=== PATIENT | male | born 1970 | race African-American/Black ===

== ENCOUNTER 2024-04-17 20:12 | Inpatient (IN) | payer SELFPAY ==
[~2024-04-17] VITALS: Ht 170.2 cm; Wt 59.9 kg
[2024-04-17 22:22] LABS: BASOPHILS % 1.1 % (0.0-2.0); DIFFERENTIAL COMMENT 0; EOSINOPHILS % 0.1 % (0.0-5.0); HEMATOCRIT. 32.4 % (42.0-52.0); HEMOGLOBIN. 10.7 g/dL (14.0-18.0); LYMPHOCYTES % 18.1 % (20.0-50.0); MEAN CORPUSCULAR HEMOGLOBIN 34.6 pg (28.0-32.0); MEAN CORPUSCULAR HGB CONC 32.9 g/dL (31.0-37.0); MEAN CORPUSCULAR VOLUME 105.1 fL (80.0-94.0); MEAN PLATELET VOLUME 9.2 fl (7.4-10.4); MONOCYTES % 12.4 % (2.0-8.0); NEUTROPHILS % 68.3 % (40.0-76.0); PLATELET 177 x1000/uL (130-400); RED BLOOD CELL COUNT 3.08 mill/uL (4.7-6.1); RED CELL DISTRIBUTION WIDTH 14.5 % (11.6-14.6); WHITE BLOOD COUNT 5.5 x1000/uL (4.5-11.0)
[2024-04-17] MEDS: ASPIRIN 81MG TABLET PO ONE (22:26)
[2024-04-17 22:36] LABS: CHLORIDE 98 mEq/L (98-107); POTASSIUM 3.6 mEq/L (3.5-5.1); SODIUM 134 mEq/L (136-145)
[2024-04-17 22:37] LABS: CALCIUM 9.1 mg/dL (8.7-10.4); CARBON DIOXIDE 24 mEq/L (21-32)
[2024-04-17 22:42] LABS: CREATININE 1.2 mg/dL (0.6-1.3); GLUCOSE 125 mg/dL (70-105); UREA NITROGEN BLOOD 13 mg/dL (9-23)
[2024-04-17 22:43] LABS: TROPONIN I HIGH SENSITIVITY 14 ng/L (3.0-53)
[2024-04-18 01:19] LABS: TROPONIN I HIGH SENSITIVITY 13 ng/L (3.0-53)
[2024-04-18] MEDS ORDERED: ACETAMINOPHEN 325MG TABLET PO PRN ×2 (02:00)
[2024-04-18] MEDS ORDERED: DOCUSATE SODIUM 100MG CAPSULE PO PRN (02:00)
[2024-04-18] MEDS ORDERED: CLONIDINE 0.1MG TABLET PO PRN (02:00)
[2024-04-18] MEDS ORDERED: GUAIFENESIN 200MG/10ML SUGAR FREE UDC PO PRN (02:00)
[2024-04-18] MEDS ORDERED: IPRATROPIUM/ALBUTEROL 0.5-3(2.5)MG/3ML NEB HHN PRN (02:00)
[2024-04-18] MEDS ORDERED: ONDANSETRON HCL 4MG/2ML INJ IV PRN (02:00)
[2024-04-18] MEDS: SODIUM CHLORIDE 0.9% 1,000 ML IV SCH (02:14)
[2024-04-18 03:02] LABS: IRON 41 ug/dL (65-175)
[2024-04-18 03:03] LABS: TRIGLYCERIDE 94 mg/dL (0-150)
[2024-04-18 03:04] LABS: LDL CHOLESTEROL 41 mg/dL (5-100)
[2024-04-18 03:05] LABS: CHOLESTEROL 140 mg/dL (<200); HDL CHOLESTEROL 67 mg/dL (>55); TOTAL IRON BINDING CAPACITY 208 ug/dl (250-425)
[2024-04-18 03:07] LABS: T4 FREE 1.27 ng/dL (0.89-1.76); THYROID STIMULATING HORMONE 2.14 uIU/mL (0.55-4.78)
[2024-04-18 03:21] LABS: ETHANOL BLOOD < 10 mg/dL (<10)
[2024-04-18 04:14] LABS: FERRITIN 280 ng/mL (22-322); FOLIC ACID (FOLATE) SERUM 8.41 ng/mL (>5.38)
[2024-04-18 05:23] LABS: VITAMIN B12 SERUM 876 pg/mL (211-911)
[2024-04-18 06:16] LABS: HEMATOCRIT 29.9 % (42.0-52.0); HEMOGLOBIN 9.9 g/dL (14.0-18.0); MEAN CORPUSCULAR HEMOGLOBIN 34.7 pg (28.0-32.0); MEAN CORPUSCULAR VOLUME 105.2 fL (80.0-94.0); PLATELET 152 x1000/uL (130-400); RED BLOOD CELL COUNT 2.84 mill/uL (4.7-6.1); RED CELL DISTRIBUTION WIDTH 14.8 % (11.6-14.6); WHITE BLOOD COUNT 5.1 x1000/uL (4.5-11.0)
[2024-04-18 06:26] LABS: CHLORIDE 100 mEq/L (98-107); POTASSIUM 3.3 mEq/L (3.5-5.1); SODIUM 136 mEq/L (136-145)
[2024-04-18 06:27] LABS: CARBON DIOXIDE 24 mEq/L (21-32)
[2024-04-18 06:28] LABS: CALCIUM 8.5 mg/dL (8.7-10.4)
[2024-04-18 06:33] LABS: CREATINE KINASE MB FRACTION < 0.5 ng/mL (0.5-3.6); GLUCOSE 110 mg/dL (70-105); TROPONIN I HIGH SENSITIVITY 14 ng/L (3.0-53); UREA NITROGEN BLOOD 13 mg/dL (9-23)
[2024-04-18 06:34] LABS: ALANINE AMINOTRANSFERASE 18 IU/L (10-49); ASPARTATE AMINOTRANSFERASE 28 IU/L (<34)
[2024-04-18 06:35] LABS: ALBUMIN 3.6 g/dL (3.2-4.8); BILIRUBIN TOTAL 0.4 mg/dL (0.1-1.0); PROTEIN TOTAL 6.6 g/dL (6.0-8.3)
[2024-04-18] MEDS: POTASSIUM CHLORIDE 20MEQ TABLET SR PO NR ×2 (08:34→17:29)
[2024-04-18 09:48] LABS: BG BASE EXCESS -2.1 mmol/L (-2.0-2.0); BG CARBOXYHEMOGLOBIN 0.3 % (0.5-1.5); BG DEOXYHEMOGLOBIN 1.9 % (0.0-5.0); BG HCO3 ACT 20.1 mmol/L (22.0-26.0); BG METHEMOGLOBIN 0.3 % (0.0-1.5); BG OXYGEN SATURATION 98.1 % (92.0-98.5); BG OXYHEMOGLOBIN 97.5 % (94.0-97.0); BG PCO2 26.5 mmHg (35.0-45.0); BG PH 7.497 (7.350-7.450); BG PO2 108.5 mmHg (75.0-100.0); BG SAMPLE SITE LEFT RADIAL; BG TOTAL HEMOGLOBIN 10.7 g/dL (12.0-18.0); BG VENT MODE ROOM AIR
[2024-04-18] MEDS: AMLODIPINE 5MG TABLET PO SCH (09:55)
[2024-04-18 12:00] VITALS: BP 116/85; PULSE 131; RESP 18; TEMP 97
[2024-04-18 12:24] VITALS: BP 116/85; PULSE 123; RESP 18; TEMP 97
[2024-04-18 16:00] VITALS: BP 120/83; PULSE 109; RESP 18; TEMP 97.3
[2024-04-18 19:45] LABS: HEMATOCRIT. 24.7 % (42.0-52.0); HEMOGLOBIN. 8.2 g/dL (14.0-18.0); MEAN CORPUSCULAR HEMOGLOBIN 34.9 pg (28.0-32.0); MEAN CORPUSCULAR HGB CONC 33.3 g/dL (31.0-37.0); MEAN CORPUSCULAR VOLUME 104.9 fL (80.0-94.0); MEAN PLATELET VOLUME 9.3 fl (7.4-10.4); PLATELET 144 x1000/uL (130-400); RED BLOOD CELL COUNT 2.35 mill/uL (4.7-6.1); RED CELL DISTRIBUTION WIDTH 14.8 % (11.6-14.6); WHITE BLOOD COUNT 4.8 x1000/uL (4.5-11.0)
[2024-04-18 19:46] LABS: DIFFERENTIAL COMMENT 1
[2024-04-18 19:55] LABS: CHLORIDE 103 mEq/L (98-107); POTASSIUM 3.8 mEq/L (3.5-5.1); SODIUM 135 mEq/L (136-145)
[2024-04-18 19:56] LABS: CARBON DIOXIDE 26 mEq/L (21-32)
[2024-04-18 19:57] LABS: CALCIUM 7.9 mg/dL (8.7-10.4)
[2024-04-18 20:00] VITALS: BP 116/80; PULSE 100; RESP 19; TEMP 97.8
[2024-04-18 20:00] LABS: PLATELET ESTIMATE NORMAL
[2024-04-18 20:01] LABS: GLUCOSE 129 mg/dL (70-105); UREA NITROGEN BLOOD 13 mg/dL (9-23)
[2024-04-18 20:02] LABS: CREATINE KINASE MB FRACTION < 0.5 ng/mL (0.5-3.6); TROPONIN I HIGH SENSITIVITY 15 ng/L (3.0-53)
[2024-04-19] VITALS: BP_SYST 100; BP_SYST 111; BP_SYST 116; BP_DIAS 73; BP_DIAS 77; BP_DIAS 80; PULSE 70; RESP 20; TEMP 97.8
[2024-04-19 04:00] VITALS: BP 124/86; PULSE 102; RESP 18; TEMP 98.2
[2024-04-19 08:00] VITALS: BP 158/98; PULSE 85; RESP 18; TEMP 97.7
[2024-04-19 09:22] VITALS: BP 158/89; PULSE 85; TEMP 97.7; O2SAT 100
== END 2024-04-19 13:40 | disposition home or self-care (01) | DRG 663 ==
LOC: ER 20:12 → 5WST 04-18 01:19 → EDBEDREQTM 04-18 01:26 → EDBEDREQ 04-18 01:26 → 8WST 04-18 12:13
PROVIDERS: ADMIT Internal Medicine; ATTEND Internal Medicine
DX: D53.9 Nutritional anemia, unspecified (principal); I10 Essential (primary) hypertension; R06.02 Shortness of breath; K59.00 Constipation, unspecified; Z20.822 Contact with and (suspected) exposure to COVID-19; Z79.899 Other long term (current) drug therapy
CPT/HCPCS: 36415; 36600; 71045; 80048; 80053; 80061; 80320; 82040; 82270; 82375; 82553; 82607; 82728; 82746; 82805; 83036; 83540; 83550; 83880; 84439; 84443; 84484; 85025; 85027; 87426; 87493; 93005; 93970; 99285; G0480